=== PATIENT | female | born 1985 | race Caucasian/White ===

== ENCOUNTER 2019-09-30 21:57 | Emergency (ER) | payer OTHER ==
[2019-09-30 22:04] VITALS: BP 113/68; PULSE 71; TEMP 98.8; BMI 29.9
--- NOTE | 2019-09-30 22:41 | PDOC ---
History of Present Illness - General Chief Complaint: Vaginal Bleeding Stated Complaint: VAGINAL BLEEDING/5WKS PREG. Time Seen by Provider: 09/30/19 22:41 History Source: Patient Exam Limitations: No Limitations - History of Present Illness Initial Comments: 09/30/19 23:07 34y previously healthy F presenting w vaginal bleeding w clots, intermittent moderate suprapubic cramping since yesterday, acutely worsening this afternoon. Went to [facility] yesterday, confirmed 5wk , DC home w OB f /u. No OBGYN, didnt take any pain meds. Denies nausea/vomiting, fevers, chest pain, SOB. Past History - Past Medical History Allergies/Adverse Reactions: Allergies Allergy/AdvReac Type Severity Reaction Status Date / Time shellfish derived Allergy Verified 09/30/19 22:04 COPD: No - Psycho Social/Smoking Cessation Hx Smoking History: Never smoked Review of Systems - Review of Systems Constitutional: No: Chills, Fever HEENTM: No: Eye Pain, Nose Pain Respiratory: No: Cough, Shortness of Breath Cardiac (ROS): No: Chest Pain, Palpitations ABD/GI: No: Constipated, Diarrhea : No: Burning, Dysuria Musculoskeletal: No: Back Pain, Joint Pain Integumentary: No: Bruising, Flushing Neurological: No: Headache, Seizure Psychiatric: No: Anxiety, Depression Endocrine: No: Intolerance to Cold, Intolerance to Heat Hematologic/Lymphatic: Yes: Blood Clots. No: Anemia *Physical Exam - Vital Signs Last Vital Signs Temp Pulse Resp BP Pulse Ox 98.8 F 71 18 113/68 100 09/30/19 22:02 09/30/19 22:02 09/30/19 22:02 09/30/19 22:02 09/30/19 22:02 - Physical Exam General Appearance: Yes: Nourished, Appropriately Dressed, Mild Distress HEENT: positive: EOMI, DERRICK, Hearing Grossly Normal. negative: Scleral Icterus (R), Scleral Icterus (L) Respiratory/Chest: positive: Lungs Clear, Normal Breath Sounds. negative: Chest Tender, Respiratory Distress Cardiovascular: positive: Regular Rhythm, Regular Rate, S1, S2. negative: Edema , Murmur Female Pelvic Exam: positive: normal external exam, cervical os closed, normal adnexa, vaginal bleeding (w clots). negative: CMT, adnexal tenderness Gastrointestinal/Abdominal: positive: Normal Bowel Sounds, Tender (mild suprapubic), Flat, Soft. 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 negative: Confused, Disoriented ED Treatment Course - LABORATORY CBC & Chemistry Diagram: 09/30/19 23:44 09/30/19 23:44 Medical Decision Making - Medical Decision Making 09/30/19 23:10 pelvic exam closed cervical os, gross vaginal bleeding w clots, no cervical/ ovarian tenderness WBC 14 w left shift --- 34y previously healthy F presenting w 2d vaginal bleeding w clots, intermittent moderate suprapubic cramping d/t miscarriage (decreasing HCG 27, 000 to 18,000 today). Not anemic or evidence of UTI. O positive 2d ago on [employer] paperwork Given 1L NS and tylenol DC w OBGYN referral Discharge - Discharge Information Problems reviewed: Yes Clinical Impression/Diagnosis: Vaginal bleeding affecting early Condition: Improved Disposition: HOME - Follow up/Referral Referrals: Mook Middleton MD [Staff Physician] - - Patient Discharge Instructions Patient Printed Discharge Instructions: DI for Miscarriage Additional Instructions: Follow up with the referred OBGYN in 2 days to retest your hormone and get an ultrasound. Take tylenol if you have pain - Post Discharge Activity
[2019-09-30] MEDS ORDERED: ACETAMINOPHEN 1000 MG/100 ML VIAL (NON FORMULARY) IVPB ONE (22:47)
[2019-09-30] MEDS ORDERED: SODIUM CHLORIDE 1,000 ML IV STA (22:50)
--- NOTE | 2019-09-30 22:50 | PDOC ---
Attending Attestation - Resident Resident Name: Adryan Arroyo - ED Attending Attestation I have performed the following: I have examined & evaluated the patient, The case was reviewed & discussed with the resident, I agree w/resident's findings & plan - HPI HPI: 09/30/19 23:01 Pt was at [facility] ER yesterday and she was told that she has no baby visualized on sono. She has vaginal bleeding and tells us that she is 5 weeks . - Physicial Exam PE: 10/01/19 01:09 Agree with resident exam Afebrile VSS no abd pain minimal vag bleed OS closed Pt has no flank pain no leg swelling neuro intact - Medical Decision Making 10/01/19 01:05 Pt's bhcg was 27K at another institution yesterday; today it is 18K here; she seems to be having an active miscarriage. Pt will be discharged home. SHe will follow with her [facility] or here in 1 week to make sure that the hcg is dropping. 10/01/19 01:09 Stable for discharge. Pt is O positive blood type.
[2019-09-30] MEDS ORDERED: ACETAMINOPHEN INJECTION 100 ML IVPB ONE (23:49)
[2019-09-30 23:56] LABS: BASO % 0.1 % (0-2.0); HEMATOCRIT 39.8 % (32.4-45.2); HEMOGLOBIN 13.4 GM/dL (10.7-15.3); LYMPH % 9.6 % (8-40); MCH 30.7 pg (25.7-33.7); MCHC 33.7 g/dl (32.0-36.0); MEAN CELL VOLUME 91.2 fl (80-96); MEAN PLT VOLUME 8.1 fl (7.5-11.1); MONO % 5.1 % (3.8-10.2); NEUT % 84.2 % (42.8-82.8); PLATELET COUNT 296 K/MM3 (134-434); RBC 4.36 M/mm3 (3.60-5.2); RDW 12.8 % (11.6-15.6); WHITE BLOOD COUNT 14.1 K/mm3 (4.0-10.0)
[2019-10-01 00:14] LABS: EPI CELLS 0.5 /HPF (0-5/HPF); HYALINE CASTS 0 /lpf (0-8); PH,URINE 5.5 (5.0-8.0); URINE APPEARANCE CLEAR; URINE BACTERIA 4.8 /hpf (NEGATIVE); URINE BILIRUBIN NEGATIVE (NEGATIVE); URINE COLOR YELLOW; URINE GLUCOSE (UA) NEGATIVE (NEGATIVE); URINE KETONE NEGATIVE (NEGATIVE); URINE LEUK ESTERASE NEGATIVE (NEGATIVE); URINE NITRITE NEGATIVE (NEGATIVE); URINE PROTEIN NEGATIVE (NEGATIVE); URINE RBC 191 /hpf (0-4); URINE UROBILINOGEN 0.2 mg/dL (0.2-1.0); URINE WBC 1 /hpf (0-5)
[2019-10-01 00:55] LABS: BLOOD UREA NITROGEN 8.6 mg/dL (7-18); CALCIUM 9.1 mg/dL (8.5-10.1); CREATININE 0.8 mg/dL (0.55-1.3); POTASSIUM 3.7 mmol/L (3.5-5.1)
== END 2019-10-01 01:39 | disposition home or self-care (01) ==
LOC: JER 21:57
DX: O26.891 Other specified pregnancy related conditions, first trimester (principal); O20.8 Other hemorrhage in early pregnancy; Z3A.09 9 weeks gestation of pregnancy
CPT/HCPCS: 36415; 80048; 81003; 84702; 85025; 86850; 86900; 86901; 87086; 99283-25; J0131; J7030

== ENCOUNTER 2022-01-09 12:15 | Inpatient (IN) | payer OTHER ==
[2022-01-09] MEDS ORDERED: ELECTROLYTE-148 SOLN 1,000 ML IV SCH (12:45)
[2022-01-09] MEDS ORDERED: CITRIC ACID/SODIUM CITRATE 30 ML UNIT-DOSE CUP PO ONE (13:15)
[2022-01-09 13:30] VITALS: BMI 38.0
[2022-01-09] MEDS ORDERED: morphine SULFATE/PF 1 MG/2 ML (2cc Syringe - QUVA) ONE (13:44)
[2022-01-09] MEDS ORDERED: ONDANSETRON 4 MG/2 ML VIAL IVPUSH PRN (14:36)
[2022-01-09] MEDS ORDERED: ACETAMINOPHEN 325 MG TABLET (FP) PO PRN ×2 (14:36→14:54)
[2022-01-09] MEDS ORDERED: morphine SULFATE/PF 1 MG/2 ML (2cc Syringe - QUVA) IT ONE (14:36)
[2022-01-09] MEDS ORDERED: ACETAMINOPHEN 1000 MG/100 ML BAG IVPB ONE (14:37)
[2022-01-09] MEDS ORDERED: METHYLERGONOVINE MALEATE 0.2 MG/1 ML AMP IM PRN (14:54)
[2022-01-09] MEDS ORDERED: OXYTOCIN 20 UNITS in 0.9% NS 20 UNIT/1,000 ML INFUS.BAG IV SCH (15:00)
[2022-01-09 15:15] LABS: CORD HCO3 25.8 mmHg (20-29); CORD PCO2 54.3 mmHg (30-78); CORD pH 7.295 (7.14-7.44)
[2022-01-09 15:19] LABS: CORD BASE EXCESS -4.9 mmol/L (0-2); CORD PCO2 42.1 mmHg (30-78); CORD pH 7.316 (7.14-7.44)
[2022-01-09] MEDS ORDERED: OXYTOCIN 20 UNITS in 0.9% NS 20 UNIT/1,000 ML INFUS.BAG IV ONE (15:28)
[2022-01-09] MEDS ORDERED: ACETAMINOPHEN INJECTION 100 ML IVPB ONE (16:29)
[2022-01-09] MEDS: IBUPROFEN 800 MG/8 ML IJ IVPB PRN (21:12)
[2022-01-10] MEDS ORDERED: oxyCODONE HCL 5 MG TABLET PO PRN ×2 (02:54)
[2022-01-10] MEDS: IBUPROFEN 800 MG/8 ML IJ IVPB PRN (06:21)
[2022-01-10 07:27] LABS: BASO % 0.3 % (0-2.0); HEMATOCRIT 32.2 % (32.4-45.2); HEMOGLOBIN 10.8 GM/dL (10.7-15.3); LYMPH % 22.2 % (8-40); MCH 29.7 pg (25.7-33.7); MCHC 33.5 g/dl (32.0-36.0); MEAN CELL VOLUME 88.8 fl (80-96); MEAN PLT VOLUME 8.4 fl (7.5-11.1); MONO % 6.3 % (3.8-10.2); NEUT % 70.2 % (42.8-82.8); PLATELET COUNT 205 10^3/uL (134-434); RBC 3.63 M/mm3 (3.60-5.2); RDW 13.3 % (11.6-15.6); WHITE BLOOD COUNT 8.7 K/mm3 (4.0-10.0)
[2022-01-10] MEDS: ENOXAPARIN NA (PORCINE) 40 MG/0.4 ML DISP.SYRIN SQ SCH (09:50)
[2022-01-10] MEDS ORDERED: BISACODYL 10 MG SUPP.RECT RC PRN (14:54)
[2022-01-10] MEDS: IBUPROFEN 600 MG TABLET (FP) PO PRN (18:05)
[2022-01-10] MEDS: SIMETHICONE 80 MG TAB.CHEW (FP) PO PRN (18:06)
[2022-01-11] MEDS: IBUPROFEN 600 MG TABLET (FP) PO PRN ×2 (04:10→10:49)
[2022-01-11] MEDS: SIMETHICONE 80 MG TAB.CHEW (FP) PO PRN ×2 (04:11→10:49)
[2022-01-11] MEDS: ENOXAPARIN NA (PORCINE) 40 MG/0.4 ML DISP.SYRIN SQ SCH (10:42)
[2022-01-12 06:45] LABS: BASO % 0.3 % (0-2.0); EOS % 1.3 % (0-4.5); HEMATOCRIT 33.8 % (32.4-45.2); HEMOGLOBIN 11.2 GM/dL (10.7-15.3); LYMPH % 27.1 % (8-40); MCH 29.8 pg (25.7-33.7); MCHC 33.3 g/dl (32.0-36.0); MEAN CELL VOLUME 89.4 fl (80-96); MEAN PLT VOLUME 8.5 fl (7.5-11.1); MONO % 6.9 % (3.8-10.2); NEUT % 64.4 % (42.8-82.8); PLATELET COUNT 265 10^3/uL (134-434); RBC 3.78 M/mm3 (3.60-5.2); RDW 13.4 % (11.6-15.6); WHITE BLOOD COUNT 10.4 K/mm3 (4.0-10.0)
[2022-01-12] MEDS: ENOXAPARIN NA (PORCINE) 40 MG/0.4 ML DISP.SYRIN SQ SCH (09:43)
[2022-01-12] MEDS: IBUPROFEN 600 MG TABLET (FP) PO PRN ×2 (09:43→22:40)
[2022-01-13] MEDS: SIMETHICONE 80 MG TAB.CHEW (FP) PO PRN (09:07)
[2022-01-13] MEDS: IBUPROFEN 600 MG TABLET (FP) PO PRN ×2 (09:07→16:44)
[2022-01-13] MEDS: ENOXAPARIN NA (PORCINE) 40 MG/0.4 ML DISP.SYRIN SQ SCH (09:08)
[2022-01-13 10:43] VITALS: BP 123/75; PULSE 80; TEMP 98.4
== END 2022-01-13 19:05 | disposition home or self-care (01) | DRG 785 ==
LOC: JLDR 12:15 → J3W 17:25
PROVIDERS: ADMIT Obstetrics & Gynecology; ATTEND Obstetrics & Gynecology
PROC: 10D00Z1 Extraction of Products of Conception, Low, Open Approach (ICD-10-PCS; principal; 2022-01-09)
PROC: 0UL70ZZ Occlusion of Bilateral Fallopian Tubes, Open Approach (ICD-10-PCS; 2022-01-09)
DX: O34.211 Maternal care for low transverse scar from previous cesarean delivery (principal); Z3A.39 39 weeks gestation of pregnancy; Z37.0 Single live birth; Z30.2 Encounter for sterilization
CPT/HCPCS: 36415; 36600; 82803; 85025; 88302-TC; 88307-TC